=== PATIENT | female | born 1990 | race Native Hawaiian/Other Pacific Islander ===

== ENCOUNTER 2020-03-21 06:33 | Inpatient (IN) | payer MEDICAID ==
[~2020-03-21] VITALS: Ht 172.7 cm; Wt 72.1 kg
[2020-03-21] MEDS ORDERED: INSU100I26 SQ (06:37)
[2020-03-21] MEDS ORDERED: SODIUM CHLORIDE 0.9% 1,000 ML IV ONE ×3 (07:00→08:30)
[2020-03-21] MEDS ORDERED: ONDANSETRON HCL 4 MG/2 ML VIAL IVP ONE (07:00)
[2020-03-21] MEDS ORDERED: KETOROLAC TROMETHAMINE 30 MG/ML VIAL IVP ONE (07:00)
[2020-03-21] MEDS ORDERED: INSULIN REGULAR, HUMAN 100 UNITS/ML IVP ONE (07:00)
[2020-03-21 07:39] LABS: BASOPHILS % (AUTO) 0.3 % (0.0-2.0); EOSINOPHILS % (AUTO) 0 % (1.0-6.0); HEMOGLOBIN 18.8 g/dL (12.0-16.0); LYMPHOCYTES # (AUTO) 1.2 K/uL (1.0-4.8); LYMPHOCYTES % (AUTO) 7.9 % (22.0-44.0); MEAN CORPUSCULAR HEMOGLOBIN 29.7 pg (26.0-34.0); MEAN CORPUSCULAR VOLUME 93 fL (80-100); MONOCYTES # (AUTO) 1.3 K/uL (0.1-1.0); MONOCYTES % (AUTO) 8.4 % (2.0-9.0); NEUTROPHILS # (AUTO) 13.2 K/uL (1.8-7.7); NEUTROPHILS % (AUTO) 83.4 % (40.0-70.0); PLATELET COUNT (AUTO) 375 K/uL (150-450); RED BLOOD CELL COUNT(AUTO) 6.33 MIL/uL (4.00-5.20); RED CELL DISTRIBUTION WIDTH 14.9 % (11.5-14.5)
[2020-03-21 07:45] LABS: HEMATOCRIT 58.7 % (36-46)
[2020-03-21 08:08] LABS: CHLORIDE 86 mmol/L (98-107); CREATININE 1.84 mg/dL (0.60-1.30); GLOMERULAR FILTR. RATE CALC 32 mL/min (>60); POTASSIUM 5.2 mmol/L (3.5-5.1); UREA NITROGEN, BLOOD 33 mg/dL (7-18)
[2020-03-21 08:09] LABS: ALANINE AMINOTRANSFERASE 15 U/L (12-78); ALBUMIN 4.5 g/dL (3.4-5.0); ALKALINE PHOSPHATASE 102 U/L (46-116); BILIRUBIN,TOTAL 0.5 mg/dL (0.1-1.0); HCG,QUANTITATIVE < 1 mIU/mL (0-6); LIPASE 172 U/L (73-393); TOTAL PROTEIN, SERUM 9.6 g/dL (6.4-8.2)
[2020-03-21 08:12] LABS: GLUCOSE,RANDOM 517 mg/dL (70-110); SODIUM SERUM 122 mmol/L (136-145)
[2020-03-21 08:26] LABS: ASPARTATE AMINOTRANSFERASE < 5 U/L (15-37)
[2020-03-21] MEDS ORDERED: INSULIN REGULAR, HUMAN 100 UNITS in SODIUM CHLORIDE 0.9% 99 ML IV SCH ×2 (08:30)
[2020-03-21 08:31] LABS: ANION GAP 31 mmol/L (8-16)
[2020-03-21 08:37] LABS: CARBON DIOXIDE 5 mmol/L (22-29)
[2020-03-21 09:07] LABS: GLUCOSE,POINT OF CARE 443 MG/DL (70-110)
[2020-03-21 09:20] LABS: ABG METHEMOGLOBIN 0.4 % (0.0-1.5); SOURCE, BLOOD GAS ARTERIAL; TEMPERATURE, FAHRENHEIT, BG 98.6 FAHREN (96.0-98.6)
[2020-03-21 09:29] LABS: ABG BASE EXCESS -25.1 mmol/L (-2.0-3.0); ABG CARBOXYHEMOGLOBIN 0.5 % (0.0-1.5); ABG OXYGEN CONTENT 24.3 mL/dL (15.0-23.0); ABG OXYHEMOGLOBIN 98.1 % (94.0-100.0); ABG TOTAL HEMOGLOBIN 17.4 G/dL (12.0-18.0); PO2, ARTERIAL BG 176.7 mmHg (92.0-100.0)
[2020-03-21 09:35] LABS: ABG PCO2 14 mmHg (35-45); ABG PH 7.112 (7.350-7.450)
[2020-03-21 09:38] LABS: ABG A-A DIFF O2 7.1 mmHg (10-20.0); ABG HCO3 9.4 mmol/L (22.0-26.0); SITE, BLOOD GAS LFT RADIAL
[2020-03-21 09:39] LABS: O2 DEVICE,BLOOD GAS ROOM AIR (ROOM AIR)
[2020-03-21] MEDS ORDERED: ONDANSETRON HCL 4 MG/2 ML VIAL IVP PRN (09:45)
[2020-03-21] MEDS ORDERED: ACETAMINOPHEN 325 MG TABLET PO PRN (09:45)
[2020-03-21 10:03] LABS: GLUCOSE,POINT OF CARE 319 MG/DL (70-110)
[2020-03-21 10:47] LABS: CALCIUM, TOTAL 8.1 mg/dL (8.8-10.5); CREATININE 1.32 mg/dL (0.60-1.30); POTASSIUM 4.7 mmol/L (3.5-5.1)
[2020-03-21 11:17] LABS: GLUCOSE,POINT OF CARE 229 MG/DL (70-110)
[2020-03-21 11:55] LABS: GLUCOSE,POINT OF CARE 168 MG/DL (70-110)
[2020-03-21] MEDS ORDERED: DEXTROSE 5%-0.45% SODIUM CHL 1,000 ML IV ONE (12:30)
[2020-03-21 13:57] LABS: GLUCOSE,POINT OF CARE 87 MG/DL (70-110)
[2020-03-21 13:57] LABS: GLUCOSE,POINT OF CARE 95 MG/DL (70-110)
[2020-03-21 15:13] LABS: ANION GAP 15 mmol/L (8-16); CALCIUM, TOTAL 7.9 mg/dL (8.8-10.5); CARBON DIOXIDE 15 mmol/L (22-29); CHLORIDE 103 mmol/L (98-107); CREATININE 1.02 mg/dL (0.60-1.30); GLOMERULAR FILTR. RATE CALC > 60 mL/min (>60); GLUCOSE,RANDOM 81 mg/dL (70-110); PHOSPHORUS 1.6 mg/dL (2.5-4.9); POTASSIUM 3.8 mmol/L (3.5-5.1); SODIUM SERUM 133 mmol/L (136-145); UREA NITROGEN, BLOOD 25 mg/dL (7-18)
[2020-03-21 15:58] LABS: GLUCOSE,POINT OF CARE 41 MG/DL (70-110)
[2020-03-21] MEDS ORDERED: DEXTROSE 50%-WATER 25 GM/50 ML SYRINGE IVP PRN (16:30)
[2020-03-21] MEDS ORDERED: INSULIN LISPRO 100 UNITS/ML SQ PRN (16:30)
[2020-03-21 16:39] LABS: GLUCOSE,POINT OF CARE 59 MG/DL (70-110)
[2020-03-21] MEDS ORDERED: SODIUM CHLORIDE 0.45% 1,000 ML IV ONE (16:45)
[2020-03-21] MEDS ORDERED: POTASSIUM PHOS,M-BASIC-D-BASIC 30 MEQ in DEXTROSE 5%-WATER 150 ML IV ONE (17:00)
[2020-03-21 17:02] LABS: ABG A-A DIFF O2 18.2 mmHg (10-20.0); ABG BASE EXCESS -14.3 mmol/L (-2.0-3.0); ABG CARBOXYHEMOGLOBIN 1.4 % (0.0-1.5); ABG HCO3 15.2 mmol/L (22.0-26.0); ABG METHEMOGLOBIN 0.3 % (0.0-1.5); ABG OXYGEN CONTENT 22.4 mL/dL (15.0-23.0); ABG OXYGEN SATURATION 98.2 % (95.0-98.0); ABG OXYHEMOGLOBIN 96.5 % (94.0-100.0); ABG PCO2 26 mmHg (35-45); ABG TOTAL HEMOGLOBIN 16.5 G/dL (12.0-18.0); PO2, ARTERIAL BG 100.6 mmHg (92.0-100.0); SOURCE, BLOOD GAS ARTERIAL; TEMPERATURE, FAHRENHEIT, BG 98.6 FAHREN (96.0-98.6)
[2020-03-21 17:13] LABS: GLUCOSE,POINT OF CARE 59 MG/DL (70-110)
[2020-03-21 17:25] LABS: APPEARANCE,URINE CLEAR (CLEAR); GLUCOSE, URINE (UA) >=1000 mg/dL (NEGATIVE); KETONES,URINE >=80 mg/dL (NEGATIVE); LEUKOCYTE ESTERASE ,URINE NEGATIVE (NEGATIVE); NITRATE,URINE NEGATIVE (NEGATIVE); OCCULT BLOOD,URINE NEGATIVE (NEGATIVE); PROTEIN,URINE SEE CONFIRM (NEGATIVE); UROBILINOGEN,URINE 0.2 mg/dL (<=1.0)
[2020-03-21 17:27] LABS: BILIRUBIN,URINE PRELIM. POSITIVE (NEGATIVE)
[2020-03-21 17:39] LABS: BACTERIA,URINE None Seen /HPF (None Seen); RBC,URINE 0-2 /HPF (0-2); SQUAMOUS EPITHELIAL CELL,UR Few /LPF (None Seen); SULFOSALICYLIC ACID,URINE 2+ (Negative); WBC,URINE 0-2 /HPF (0-5)
[2020-03-21 18:17] LABS: GLUCOSE,POINT OF CARE 191 MG/DL (70-110)
[2020-03-21 18:46] LABS: ABG PH 7.294 (7.350-7.450); O2 DEVICE,BLOOD GAS ROOM AIR (ROOM AIR); SITE, BLOOD GAS LFT RADIAL
[2020-03-21 19:13] LABS: ANION GAP 13 mmol/L (8-16); CALCIUM, TOTAL 7.7 mg/dL (8.8-10.5); CARBON DIOXIDE 16 mmol/L (22-29); CHLORIDE 102 mmol/L (98-107); CREATININE 1.02 mg/dL (0.60-1.30); GLOMERULAR FILTR. RATE CALC > 60 mL/min (>60); GLUCOSE,RANDOM 209 mg/dL (70-110); POTASSIUM 3.9 mmol/L (3.5-5.1); SODIUM SERUM 131 mmol/L (136-145); UREA NITROGEN, BLOOD 21 mg/dL (7-18)
[2020-03-21 19:41] LABS: GLUCOSE,POINT OF CARE 178 MG/DL (70-110)
[2020-03-21 20:56] LABS: GLUCOSE,POINT OF CARE 135 MG/DL (70-110)
[2020-03-21] MEDS: INSULIN GLARGINE,HUM.REC.ANLOG 100 UNITS/ML SQ SCH (21:13)
[2020-03-21 21:25] LABS: ABG A-A DIFF O2 26.5 mmHg (10-20.0); ABG CARBOXYHEMOGLOBIN 0.9 % (0.0-1.5); ABG HCO3 16.8 mmol/L (22.0-26.0); ABG METHEMOGLOBIN 0.3 % (0.0-1.5); ABG OXYGEN CONTENT 21.8 mL/dL (15.0-23.0); ABG OXYGEN SATURATION 97.7 % (95.0-98.0); ABG OXYHEMOGLOBIN 96.5 % (94.0-100.0); ABG PH 7.348 (7.350-7.450); PO2, ARTERIAL BG 92.8 mmHg (92.0-100.0); SOURCE, BLOOD GAS ARTERIAL; TEMPERATURE, FAHRENHEIT, BG 98.6 FAHREN (96.0-98.6)
[2020-03-21 21:27] LABS: ABG PCO2 25 mmHg (35-45); O2 DEVICE,BLOOD GAS ROOM AIR (ROOM AIR); SITE, BLOOD GAS RT RADIAL
[2020-03-21 23:25] VITALS: BP 113/73
[2020-03-21 23:47] LABS: GLUCOMETER DEV NAME(LOC) 6N.2; GLUCOSE,POINT OF CARE 72 MG/DL (70-110)
[2020-03-22 02:55] LABS: GLUCOMETER DEV NAME(LOC) 6N.2; GLUCOSE,POINT OF CARE 130 MG/DL (70-110)
[2020-03-22 05:20] VITALS: BP 105/61
[2020-03-22 06:05] LABS: GLUCOMETER DEV NAME(LOC) 6N.2; GLUCOSE,POINT OF CARE 112 MG/DL (70-110)
[2020-03-22 08:03] VITALS: BP 142/84
[2020-03-22 10:32] LABS: GLUCOMETER DEV NAME(LOC) 6N.2; GLUCOSE,POINT OF CARE 106 MG/DL (70-110)
[2020-03-22 10:33] LABS: GLUCOMETER DEV NAME(LOC) 6S.1; GLUCOSE,POINT OF CARE 48 MG/DL (70-110)
[2020-03-22 11:36] VITALS: BP 121/68
[2020-03-22] MEDS ORDERED: ZOLPIDEM TARTRATE 5 MG TABLET PO PRN (13:45)
[2020-03-22] MEDS ORDERED: IPRATROPIUM BROMIDE 0.5 MG/2.5 ML NEB SOLUTION NEB PRN (13:45)
[2020-03-22] MEDS ORDERED: BISACODYL 10 MG RECTAL RECTAL SUPPOSITORY PR PRN (13:45)
[2020-03-22] MEDS ORDERED: ALBUTEROL SULFATE 2.5 MG/0.5 ML NEB SOLUTION NEB PRN (13:45)
[2020-03-22] MEDS ORDERED: HYDROCODONE/ACETAMINOPHEN 5-325 MG TABLET PO PRN (13:45)
[2020-03-22] MEDS ORDERED: MAGNESIUM HYDROXIDE SUSPENSION 30 ML UDCUP PO PRN (13:45)
[2020-03-22] MEDS ORDERED: ACETAMINOPHEN 325 MG TABLET PO PRN (13:45)
[2020-03-22] MEDS ORDERED: ONDANSETRON HCL 4 MG/2 ML VIAL IVP PRN (13:45)
[2020-03-22] MEDS ORDERED: MORPHINE SULFATE 2 MG/ML SYRINGE IVP PRN (13:45)
[2020-03-22 15:07] LABS: BASOPHILS % (AUTO) 0.8 % (0.0-2.0); EOSINOPHILS % (AUTO) 1.3 % (1.0-6.0); HEMATOCRIT 44.1 % (36-46); LYMPHOCYTES # (AUTO) 1.7 K/uL (1.0-4.8); LYMPHOCYTES % (AUTO) 25.9 % (22.0-44.0); MEAN CORPUSCULAR HGB CONC 33.9 G/dL (31.0-37.0); MEAN CORPUSCULAR VOLUME 89 fL (80-100); MONOCYTES # (AUTO) 0.6 K/uL (0.1-1.0); MONOCYTES % (AUTO) 9.5 % (2.0-9.0); NEUTROPHILS # (AUTO) 4.2 K/uL (1.8-7.7); NEUTROPHILS % (AUTO) 62.5 % (40.0-70.0); PLATELET COUNT (AUTO) 259 K/uL (150-450); RED BLOOD CELL COUNT(AUTO) 4.98 MIL/uL (4.00-5.20); RED CELL DISTRIBUTION WIDTH 15.2 % (11.5-14.5)
[2020-03-22 15:15] VITALS: BP 114/73
[2020-03-22 15:19] LABS: ANION GAP 13 mmol/L (8-16); CALCIUM, TOTAL 8.4 mg/dL (8.8-10.5); CARBON DIOXIDE 18 mmol/L (22-29); CHLORIDE 104 mmol/L (98-107); CREATININE 0.82 mg/dL (0.60-1.30); GLOMERULAR FILTR. RATE CALC > 60 mL/min (>60); GLUCOSE,RANDOM 208 mg/dL (70-110); POTASSIUM 3.4 mmol/L (3.5-5.1); SODIUM SERUM 135 mmol/L (136-145); UREA NITROGEN, BLOOD 16 mg/dL (7-18)
[2020-03-22 15:25] LABS: ALANINE AMINOTRANSFERASE 16 U/L (12-78); ALBUMIN 3.1 g/dL (3.4-5.0); ALKALINE PHOSPHATASE 61 U/L (46-116); ASPARTATE AMINOTRANSFERASE 12 U/L (15-37); BILIRUBIN,TOTAL 0.7 mg/dL (0.1-1.0); TOTAL PROTEIN, SERUM 6.6 g/dL (6.4-8.2)
[2020-03-22] MEDS: HEPARIN SODIUM,PORCINE 5,000 UNITS/ML VIAL SQ SCH ×2 (15:50→23:44)
[2020-03-22] MEDS ORDERED: SODIUM CHLORIDE 0.9% 1,000 ML ONE (16:31)
[2020-03-22] MEDS: SODIUM CHLORIDE 0.9% 1,000 ML IV SCH (17:04)
[2020-03-22] MEDS ORDERED: MAGNESIUM SULFATE 4 GM/WATER 100 ML IV PRN (17:45)
[2020-03-22] MEDS ORDERED: MAGNESIUM OXIDE 400 MG TABLET PO PRN (17:45)
[2020-03-22] MEDS ORDERED: MAGNESIUM SULFATE 2 GM/WATER 50 ML IV PRN (17:45)
[2020-03-22] MEDS ORDERED: DEXTROSE 50%-WATER 25 GM/50 ML SYRINGE IVP PRN (17:45)
[2020-03-22] MEDS: POTASSIUM CHLORIDE 20 MEQ ER TABLET PO PRN (18:19)
[2020-03-22 19:42] VITALS: BP 108/71
[2020-03-22] MEDS: INSULIN GLARGINE,HUM.REC.ANLOG 100 UNITS/ML SQ SCH (21:00)
[2020-03-22] MEDS: DOCUSATE SODIUM 100 MG CAPSULE PO SCH (21:14)
[2020-03-22 23:24] VITALS: BP 116/79
[2020-03-23] LABS: GLUCOMETER DEV NAME(LOC) 6N.2; GLUCOSE,POINT OF CARE 82 MG/DL (70-110)
[2020-03-23 00:01] LABS: GLUCOMETER DEV NAME(LOC) 6N.2; GLUCOSE,POINT OF CARE 70 MG/DL (70-110)
[2020-03-23] MEDS: SODIUM CHLORIDE 0.9% 1,000 ML IV SCH ×2 (00:30→12:39)
[2020-03-23 01:01] LABS: GLUCOMETER DEV NAME(LOC) 6S.1; GLUCOSE,POINT OF CARE 136 MG/DL (70-110)
[2020-03-23 01:02] LABS: GLUCOMETER DEV NAME(LOC) 6S.1; GLUCOSE,POINT OF CARE 80 MG/DL (70-110)
[2020-03-23 04:55] VITALS: BP 104/75
[2020-03-23 06:12] LABS: GLUCOMETER DEV NAME(LOC) 6S.1; GLUCOSE,POINT OF CARE 163 MG/DL (70-110)
[2020-03-23 06:12] LABS: GLUCOMETER DEV NAME(LOC) 6S.1; GLUCOSE,POINT OF CARE 63 MG/DL (70-110)
[2020-03-23 07:44] VITALS: BP 107/68
[2020-03-23 07:56] LABS: HEMOGLOBIN A1C 13.4 % (3.8-5.6)
[2020-03-23 08:04] LABS: ALANINE AMINOTRANSFERASE 14 U/L (12-78); ALBUMIN 2.9 g/dL (3.4-5.0); ALKALINE PHOSPHATASE 57 U/L (46-116); ANION GAP 10 mmol/L (8-16); ASPARTATE AMINOTRANSFERASE 13 U/L (15-37); BILIRUBIN,TOTAL 0.8 mg/dL (0.1-1.0); CALCIUM, TOTAL 8.2 mg/dL (8.8-10.5); CARBON DIOXIDE 22 mmol/L (22-29); CHLORIDE 106 mmol/L (98-107); CREATININE 0.59 mg/dL (0.60-1.30); GLOMERULAR FILTR. RATE CALC > 60 mL/min (>60); GLUCOSE,RANDOM 150 mg/dL (70-110); POTASSIUM 3.1 mmol/L (3.5-5.1); SODIUM SERUM 138 mmol/L (136-145); THYROID STIMULATING HORMONE 3.26 uIU/mL (0.36-3.74); TOTAL PROTEIN, SERUM 6.2 g/dL (6.4-8.2); UREA NITROGEN, BLOOD 11 mg/dL (7-18)
[2020-03-23] MEDS: DOCUSATE SODIUM 100 MG CAPSULE PO SCH (08:43)
[2020-03-23] MEDS: HEPARIN SODIUM,PORCINE 5,000 UNITS/ML VIAL SQ SCH ×2 (08:43→15:14)
[2020-03-23] MEDS: POTASSIUM CHLORIDE 20 MEQ ER TABLET PO PRN (09:45)
[2020-03-23 11:15] VITALS: BP 125/95
[2020-03-23] MEDS: INSULIN LISPRO 100 UNITS/ML SQ PRN ×2 (13:43→17:16)
[2020-03-23 15:41] LABS: MAGNESIUM 1.9 mg/dL (1.80-2.40)
[2020-03-23 15:42] VITALS: BP 123/90
[2020-03-23 18:26] LABS: GLUCOMETER DEV NAME(LOC) 6N.2; GLUCOSE,POINT OF CARE 272 MG/DL (70-110)
[2020-03-23 18:26] LABS: GLUCOMETER DEV NAME(LOC) 6N.2; GLUCOSE,POINT OF CARE 196 MG/DL (70-110)
[2020-03-23 18:26] LABS: GLUCOMETER DEV NAME(LOC) 6N.2; GLUCOSE,POINT OF CARE 228 MG/DL (70-110)
== END 2020-03-23 17:25 | disposition home or self-care (01) | DRG 420 ==
LOC: EMS 06:34 → 6N 22:00 → UNDOADMIN 22:00 → 6S 22:00
PROVIDERS: ADMIT Hospitalist; ATTEND Hospitalist
DX: E10.10 Type 1 diabetes mellitus with ketoacidosis without coma (principal); N17.9 Acute kidney failure, unspecified; R65.10 Systemic inflammatory response syndrome (SIRS) of non-infectious origin without acute organ dysfunction; E87.1 Hypo-osmolality and hyponatremia; E03.9 Hypothyroidism, unspecified; E86.0 Dehydration; Z79.4 Long term (current) use of insulin; Z91.14 Patient's other noncompliance with medication regimen; Z79.899 Other long term (current) drug therapy; Z20.828 Contact with and (suspected) exposure to other viral communicable diseases
CPT/HCPCS: 36600; 74176; 82805; 83036; 83735; 84100; 84132; 84439; 84443; 99291; J1644; J1815; J1885; J2405; J3490; J7030; J7050; J7060